=== PATIENT | female | born 1935 | race Native Hawaiian/Other Pacific Islander ===

== ENCOUNTER 2016-11-02 18:27 | Observation (INO) | payer MEDICARE ==
--- NOTE | 2016-11-02 20:50 | C.PDOC ---
History Of Present Illness 81 year old female presents to the ED with complaints of progressively worsening chest pain and back pain. Patient states she was admitted to the hospital 5 weeks ago for syncope and she has had the symptoms since. She notes the pain occurs at any time and lasts for minutes or hours. She has not taken anything for the pain and denies any associated symptoms. Time Seen by Provider: 11/02/16 20:10 Chief Complaint (Nursing): Back Pain History Per: Patient History/Exam Limitations: no limitations Onset/Duration Of Symptoms: Days Current Symptoms Are (Timing): Still Present Quality Of Discomfort: "Pain" Severity: Mild Associated Symptoms: None Past Medical History Reviewed: Historical Data, Nursing Documentation, Vital Signs Vital Signs: Last Vital Signs Temp 98.6 F 11/03/16 07:20 Pulse 60 11/03/16 07:30 Resp 20 11/03/16 07:20 BP 134/67 11/03/16 07:20 Pulse Ox 100 11/03/16 07:20 - Medical History PMH: Asthma, Bronchitis, HTN, Hypothyroidism Surgical History: CABG Family History: States: Unknown Family Hx - Social History Hx Alcohol Use: No Hx Substance Use: No - Immunization History Hx Influenza Vaccination: Yes Hx Pneumococcal Vaccination: Yes Review Of Systems Except As Marked, All Systems Reviewed And Found Negative. Constitutional: Negative for: Fever, Chills Cardiovascular: Positive for: Chest Pain. Negative for: Palpitations Respiratory: Negative for: Cough, Shortness of Breath Gastrointestinal: Negative for: Vomiting, Abdominal Pain Musculoskeletal: Positive for: Back Pain Neurological: Negative for: Weakness, Numbness Physical Exam - Physical Exam Appears: Non-toxic, No Acute Distress Skin: Normal Color, Warm, Dry Head: Atraumatic, Normacephalic Oral Mucosa: Moist Chest: Symmetrical, No Deformity, No Tenderness Cardiovascular: Rhythm Regular Respiratory: Normal Breath Sounds, No Accessory Muscle Use, No Rales, No Rhonchi , No Wheezing Gastrointestinal/Abdominal: Soft, No Tenderness Back: No Vertebral Tenderness, No Paraspinal Tenderness Extremity: Normal ROM Neurological/Psych: Oriented x3, Normal Speech, Normal Cognition ED Course And Treatment - Laboratory Results Result Diagrams: 11/03/16 06:04 11/03/16 06:04 ECG: Interpreted By Nd ECG Rhythm: Atrial Fibrillation ECG Interpretation: No Acute Changes Rate From EC O2 Sat by Pulse Oximetry: 100 (Room air) Pulse Ox Interpretation: Normal - Radiology CXR: Interpreted by Me CXR Interpretation: Yes: No Acute Disease Progress Note: CXR, EKG, and Blood work ordered and reviewed. Patient treated with Tylenol. Medical Decision Making Medical Decision Making: No indication of ACS PE or TAD Results discussed with pt Plan dc home usual meds f/u PCP Disposition - Disposition Disposition: HOSPITALIZED Disposition Time: 00:00 Condition: GOOD - Clinical Impression Clinical Impression: Chest pain, Back pain - Scribe Statement The provider has reviewed the documentation as recorded by the Scribe Hong Oconnell. Provider Attestation: All medical record entries made by the Scribe were at my direction and personally dictated by me. I have reviewed the chart and agree that the record accurately reflects my personal performance of the history, physical exam, medical decision making, and the department course for this patient. I have also personally directed, reviewed, and agree with the discharge instructions and disposition.
[2016-11-02 21:25] LABS: BASO % 0.5 % (0.0-2.0); EOS # 0.1 K/uL (0.0-0.7); EOS % 1.5 % (0.0-4.0); HEMATOCRIT 38.5 % (34.0-47.0); LYMPH # 2.4 K/uL (1.0-4.3); LYMPH % 24.8 % (20.0-40.0); MEAN CELL VOLUME 88.9 fL (81.0-99.0); MEAN CORPUSCULAR HEMOGLOBIN 29.1 pg (27.0-31.0); MEAN CORPUSCULAR HGB CONC 32.7 g/dL (33.0-37.0); MEAN PLATELET VOLUME 7.7 fL (7.2-11.7); MONO # 0.8 K/uL (0.0-0.8); MONO % 8.7 % (0.0-10.0); WHITE BLOOD COUNT 9.6 K/uL (4.8-10.8)
[2016-11-02 21:33] LABS: CHLORIDE 100 mmol/L (98-107); SODIUM 138 mmol/L (132-148)
[2016-11-02 21:35] LABS: GFR AFRICAN-AMERICAN 52
[2016-11-02 21:36] LABS: ALB/GLOB RATIO 1.2 (1.0-2.1); ALKALINE PHOSPHATASE 100 U/L (38-126); ALT/SGPT 19 U/L (9-52); AST/SGOT 22 U/L (14-36); BILIRUBIN,TOTAL 0.5 mg/dL (0.2-1.3); BLOOD UREA NITROGEN 30 mg/dL (7-17); CALCIUM 8.7 mg/dl (8.6-10.4); CARBON DIOXIDE 23 mmol/L (22-30); GLUCOSE,RANDOM 119 mg/dL (65-105); TOTAL PROTEIN 8.2 g/dL (6.3-8.3)
[2016-11-02 21:42] LABS: INR 1.1
[2016-11-02 21:45] LABS: POTASSIUM 4.7 mmol/L (3.6-5.2)
--- NOTE | 2016-11-03 01:01 | CP.PCM.HP ---
<Mely Hicks - Last Filed: 11/03/16 01:37> History of Present Illness - History of Present Illness History of Present Illness: CC: "chest pain" 81 year old female with PMHx of A-fib, DM, OA, asthma, CVA presents with complaint of chest pain. Chest pain is midsternal and started 1 week after being discharged in September 2016. She admits to intermittent chest pain at rest and admits to chest pain with exertion. Patient was not able to rate the pain or describe the quality of the pain. She admits to getting tired easily and admits to weight loss over the past few months. She has changed her diet to be more vegetarian based. She denies LE swelling, but admits to intermitted LE pain. Denies nausea, vomiting, diaphoresis, palpitations. Admits to chronic back pain, knee pain and has some rib pain. PMHx: A-fib, DM, OA, asthma, CVA 2017 (no residual weakness), HTN, and hypothyroidism PSHx: bilateral total knee replacement X5 years ago at [place], Bypass surgery X25 years ago. FamilyHx: Father: DM and IA [ at 82] Sisters (2): IA [ in 80's]. SocialHx:1 ppd for 2 years when younger (in teens), denies alcohol use, denies illicit drug use. Lives with daughter at home; retired (was content editor) PMD: Dr. Tan [employer] Equipment Operator: Dr. Elder Present on Admission - Present on Admission Any Indicators Present on Admission: No Review of Systems - Constitutional Constitutional: Fatigue. absent: Chills, Fever - EENT Eyes: absent: Blurred Vision, Change in Vision - Cardiovascular Cardiovascular: Chest Pain, Chest Pain at Rest. absent: Diaphoresis, Dyspnea, Edema - Respiratory Respiratory: absent: Cough, Dyspnea, Wheezing - Gastrointestinal Gastrointestinal: absent: Abdominal Pain, Constipation, Diarrhea, Nausea, Vomiting - Genitourinary Genitourinary: absent: Difficulty Urinating, Dysuria - Musculoskeletal Musculoskeletal: Back Pain. absent: Myalgias, Numbness, Tingling - Integumentary Integumentary: absent: Wounds - Neurological Neurological: absent: Dizziness, Numbness, Tingling - Endocrine Endocrine: Fatigue. absent: Palpitations Past Patient History - Past Medical History & Family History Past Medical History?: Yes - Past Social History Smoking Status: Never Smoked - CARDIAC Hx Hypertension: Yes - PULMONARY Hx Asthma: Yes Hx Bronchitis: Yes - NEUROLOGICAL Hx Neurological Disorder: No - HEENT Hx HEENT Problems: No - RENAL Hx Chronic Kidney Disease: No - ENDOCRINE/METABOLIC Hx Hypothyroidism: Yes - HEMATOLOGICAL/ONCOLOGICAL Hx Blood Transfusions: Yes (own blood) Hx Blood Transfusion Reaction: No - INTEGUMENTARY Hx Dermatological Problems: No - MUSCULOSKELETAL/RHEUMATOLOGICAL Hx Falls: Yes - GENITOURINARY/GYNECOLOGICAL Hx Genitourinary Disorders: No - PSYCHIATRIC Hx Substance Use: No - SURGICAL HISTORY Hx Coronary Artery Bypass Graft: Yes - ANESTHESIA Hx Anesthesia: Yes Hx Anesthesia Reactions: No Hx Malignant Hyperthermia: No Meds Allergies/Adverse Reactions: Allergies Allergy/AdvReac Type Severity Reaction Status Date / Time Penicillins Allergy Verified 09/22/16 12:48 Physical Exam - Constitutional Appears: No Acute Distress - Head Exam Head Exam: NORMAL INSPECTION, NORMOCEPHALIC - Eye Exam Eye Exam: EOMI, Normal appearance. absent: Scleral icterus - ENT Exam ENT Exam: Mucous Membranes Moist - Neck Exam Neck exam: Positive for: Full Rom, Normal Inspection - Respiratory Exam Respiratory Exam: Clear to Auscultation Bilateral, NORMAL BREATHING PATTERN - Cardiovascular Exam Cardiovascular Exam: REGULAR RHYTHM, +S1, +S2 - GI/Abdominal Exam GI & Abdominal Exam: Normal Bowel Sounds, Soft. absent: Distended, Tenderness - Extremities Exam Extremities exam: Positive for: full ROM, normal inspection - Back Exam Back exam: NORMAL INSPECTION - Neurological Exam Neurological exam: Alert, Oriented x3 - Psychiatric Exam Psychiatric exam: Normal Affect, Normal Mood - Skin Skin Exam: Dry, Normal Color, Warm Additional comments: +sternotomy scar Results - Vital Signs Recent Vital Signs: Last Vital Signs Temp 97.8 F 11/02/16 18:43 Pulse 79 11/02/16 18:43 Resp 18 11/02/16 18:43 BP 146/72 11/02/16 18:43 Pulse Ox 100 11/02/16 20:52 - Labs Result Diagrams: 11/02/16 21:21 11/02/16 21:21 Assessment & Plan (1) Chest pain Assessment and Plan: Patient with hx of CABG. BRNADO on admission negative. BRANDO Q6H X 2 EKG on admission- atrial fibrillation, 86 bpm. Cardio consult placed- Dr. Franco- help appreciated. Medications as per last admission: ASA 81 mg PO daily Coreg 6.25 mg PO BID Pradaxa 75mg PO daily f/u HgbA1C, TSH, FLP, Vit B12, Vit D. f/u iron studies Status: Acute (2) Atrial fibrillation Assessment and Plan: Rate controlled. Coreg 6.25 mg PO BID Status: Acute (3) HTN (hypertension) Assessment and Plan: Medications as per last admission: Losartan 25 mg PO daily Coreg 6.25 mg PO BID Status: Acute (4) Diabetes Assessment and Plan: Januvia daily ISS ACCUCHECKS f/u Hgb A1C Status: Acute (5) Hypothyroid Assessment and Plan: Resume Levothyroxine 50 mcg PO daily. f/u Thyroid studies in the AM. Status: Acute (6) CAD (coronary artery disease) Assessment and Plan: Cardio consult placed- Dr. Franco- help appreciated. Medications as per last admission: ASA 81 mg PO daily Coreg 6.25 mg PO BID Pradaxa 75mg PO daily Crestor 10 mg PO HS Status: Acute (7) History of CVA (cerebrovascular accident) Assessment and Plan: Medications as per last admission: ASA 81 mg PO daily Crestor 10 mg PO HS Status: Acute (8) Prophylactic measure Assessment and Plan: Pepcid 20 mg PO BID Heparin 5000 SC Q8H SCDs Status: Acute <Timur Dozier P - Last Filed: 11/14/16 22:15> Results - Vital Signs Recent Vital Signs: Last Vital Signs Temp 98.6 F 11/03/16 07:20 Pulse 60 11/03/16 07:30 Resp 20 11/03/16 07:20 BP 134/67 11/03/16 07:20 Pulse Ox 100 11/08/16 09:56 - Labs Result Diagrams: 11/03/16 06:04 11/03/16 06:04 Attending/Attestation - Attestation I have personally seen and examined this patient.: Yes I have fully participated in the care of the patient.: Yes I have reviewed all pertinent clinical information: Yes
[2016-11-03 03:00] VITALS: RESP 20
[2016-11-03 05:02] VITALS: PULSE 60; O2SAT 100
[2016-11-03 05:10] LABS: IRON 39 ug/dL (37-170)
[2016-11-03 06:16] LABS: BASO # 0.1 K/uL (0.0-0.2); BASO % 0.9 % (0.0-2.0); EOS # 0.2 K/uL (0.0-0.7); EOS % 2.2 % (0.0-4.0); HEMATOCRIT 35.3 % (34.0-47.0); LYMPH # 2.4 K/uL (1.0-4.3); LYMPH % 33.5 % (20.0-40.0); MEAN CELL VOLUME 89.2 fL (81.0-99.0); MEAN CORPUSCULAR HEMOGLOBIN 28.8 pg (27.0-31.0); MEAN CORPUSCULAR HGB CONC 32.4 g/dL (33.0-37.0); MEAN PLATELET VOLUME 7.8 fL (7.2-11.7); MONO # 0.7 K/uL (0.0-0.8); MONO % 9.9 % (0.0-10.0); RED CELL DISTRIBUTION WIDTH 14.1 % (11.5-14.5); WHITE BLOOD COUNT 7.3 K/uL (4.8-10.8)
[2016-11-03] MEDS ORDERED: Levothyroxine 50 MCG TAB PO SCH (06:30)
[2016-11-03 06:33] LABS: INR 1.1
[2016-11-03 06:35] LABS: CHLORIDE 103 mmol/L (98-107)
[2016-11-03 06:36] LABS: POTASSIUM 4.2 mmol/L (3.6-5.2); SODIUM 141 mmol/L (132-148)
[2016-11-03 06:38] LABS: ALB/GLOB RATIO 1.1 (1.0-2.1); ALKALINE PHOSPHATASE 81 U/L (38-126); AST/SGOT 25 U/L (14-36); BILIRUBIN,TOTAL 0.9 mg/dL (0.2-1.3); BLOOD UREA NITROGEN 27 mg/dL (7-17); CARBON DIOXIDE 23 mmol/L (22-30); CHOLESTEROL 94 mg/dL (0-199); GFR AFRICAN-AMERICAN > 60; GLUCOSE,RANDOM 104 mg/dL (65-105); TOTAL PROTEIN 6.8 g/dL (6.3-8.3)
[2016-11-03 06:39] LABS: ALT/SGPT 15 U/L (9-52)
[2016-11-03 06:46] LABS: TRANSFERRIN 193.85 mg/dL (206-381)
[2016-11-03 07:08] LABS: THYROID STIMULATING HORMONE 2.79 mIU/L (0.46-4.68)
[2016-11-03] MEDS: (Novolin R) Insulin Human Regular 100 units/ml vial SC SCH ×2 (07:30→11:30)
[2016-11-03 08:53] LABS: FREE T4 1.76 ng/dL (0.78-2.19)
[2016-11-03 08:58] VITALS: BP 134/67; TEMP 98.6
[2016-11-03] MEDS ORDERED: Levothyroxine 75 MCG TAB PO SCH (10:00)
[2016-11-03] MEDS ORDERED: VALSARTAN PO SCH (10:00)
[2016-11-03] MEDS ORDERED: TOPROL PO SCH (10:00)
[2016-11-03] MEDS ORDERED: ATORVASTATIN CALCIUM PO SCH (10:00)
--- NOTE | 2016-11-03 10:18 | RAD ---
HISTORY: chest pain COMPARISON: Comparison is made to the previous study dated 09/22/2016 TECHNIQUE: Chest PA and lateral FINDINGS: LUNGS: Prominent lung markings versus small focal infiltrate at the left lower lung. There are also small linear opacity seen at the mid to lower left lung likely atelectasis or scar tissue. PLEURA: No significant pleural effusion identified. No pneumothorax apparent. CARDIOVASCULAR: The cardiac silhouette is mildly enlarged. OSSEOUS STRUCTURES: No significant abnormalities. VISUALIZED UPPER ABDOMEN: Normal. OTHER FINDINGS: None. IMPRESSION: Left lower lung infiltrate or prominent lung markings. Cardiomegaly .
--- NOTE | 2016-11-03 17:33 | CP.PCM.DIS ---
Provider - Provider Date of Admission: 11/02/16 23:09 Attending physician: Timur Dozier MD Primary care physician: Dr. Tan Consults: Dr. Franco - cardiology Time Spent in preparation of Discharge (in minutes): 35 Diagnosis - Discharge Diagnosis (1) Chest pain Status: Acute Comment: follow up primary care. f/u cardiology Dr. Franco for outpatient stress test Hospital Course - Lab Results Lab Results: Most Recent Lab Values WBC 7.3 K/uL (4.8-10.8) 11/03/16 06:04 RBC 3.96 Mil/uL (3.80-5.20) 11/03/16 06:04 Hgb 11.4 g/dL (11.0-16.0) 11/03/16 06:04 Hct 35.3 % (34.0-47.0) 11/03/16 06:04 MCV 89.2 fL (81.0-99.0) 11/03/16 06:04 MCH 28.8 pg (27.0-31.0) 11/03/16 06:04 MCHC 32.4 g/dL (33.0-37.0) L 11/03/16 06:04 RDW 14.1 % (11.5-14.5) 11/03/16 06:04 Plt Count 223 K/uL (130-400) 11/03/16 06:04 MPV 7.8 fL (7.2-11.7) 11/03/16 06:04 Neut % (Auto) 53.5 % (50.0-75.0) 11/03/16 06:04 Lymph % (Auto) 33.5 % (20.0-40.0) 11/03/16 06:04 Adams % (Auto) 9.9 % (0.0-10.0) 11/03/16 06:04 Eos % (Auto) 2.2 % (0.0-4.0) 11/03/16 06:04 Baso % (Auto) 0.9 % (0.0-2.0) 11/03/16 06:04 Neut # 3.9 K/uL (1.8-7.0) 11/03/16 06:04 Lymph # 2.4 K/uL (1.0-4.3) 11/03/16 06:04 Adams # 0.7 K/uL (0.0-0.8) 11/03/16 06:04 Eos # 0.2 K/uL (0.0-0.7) 11/03/16 06:04 Baso # 0.1 K/uL (0.0-0.2) 11/03/16 06:04 PT 12.5 SECONDS (9.7-12.2) H 11/03/16 06:04 INR 1.1 11/03/16 06:04 APTT 47 SECONDS (21-34) H 11/02/16 21:21 Sodium 141 mmol/L (132-148) 11/03/16 06:04 Potassium 4.2 mmol/L (3.6-5.2) 11/03/16 06:04 Chloride 103 mmol/L (98-107) 11/03/16 06:04 Carbon Dioxide 23 mmol/L (22-30) 11/03/16 06:04 Anion Gap 19 (10-20) 11/03/16 06:04 BUN 27 mg/dL (7-17) H 11/03/16 06:04 Creatinine 1.0 MG/DL (0.7-1.2) 11/03/16 06:04 Est GFR ( Amer) > 60 11/03/16 06:04 Est GFR (Non-Af Amer) 53 11/03/16 06:04 POC Glucose (mg/dL) 142 mg/dL (65-110) H 11/03/16 08:17 Random Glucose 104 mg/dL (65-105) 11/03/16 06:04 Hemoglobin A1c 7.7 % (4.2-6.5) H 11/03/16 06:04 Calcium 8.0 mg/dl (8.6-10.4) L 11/03/16 06:04 Iron 39 ug/dL (37-170) 11/03/16 01:25 TIBC 263 ug/dL (250-450) 11/03/16 01:25 % Saturation 15 (20-55) L 11/03/16 01:25 Transferrin 193.85 mg/dL (206-381) L 11/03/16 06:04 Ferritin 37.2 ng/mL 11/03/16 06:04 Total Bilirubin 0.9 mg/dL (0.2-1.3) 11/03/16 06:04 AST 25 U/L (14-36) 11/03/16 06:04 ALT 15 U/L (9-52) 11/03/16 06:04 Alkaline Phosphatase 81 U/L (38-126) 11/03/16 06:04 Total Creatine Kinase 48 U/L (30-135) 11/03/16 04:37 CK-MB (Mass) 1.15 ng/mL (0.0-3.38) 11/03/16 04:37 Troponin I < 0.0120 ng/mL (0.00-0.120) 11/02/16 21:21 Troponin I, Quant < 0.0120 ng/mL (0.00-0.120) 11/03/16 04:37 Total Protein 6.8 g/dL (6.3-8.3) 11/03/16 06:04 Albumin 3.6 g/dL (3.5-5.0) 11/03/16 06:04 Globulin 3.2 gm/dL (2.2-3.9) 11/03/16 06:04 Albumin/Globulin Ratio 1.1 (1.0-2.1) 11/03/16 06:04 Triglycerides 104 mg/dL (0-149) D 11/03/16 06:04 Cholesterol 94 mg/dL (0-199) 11/03/16 06:04 LDL Cholesterol Direct 34 mg/dL (0-129) 11/03/16 06:04 HDL Cholesterol 35 mg/dL (30-70) 11/03/16 06:04 Lipase 93 U/L (23-300) 11/02/16 21:21 Vitamin B12 318 pg/mL (239-931) 11/03/16 06:04 25-OH Vitamin D Total 34.3 NG/ML (30.0-100.0) 11/03/16 06:04 Free T4 1.76 ng/dL (0.78-2.19) 11/03/16 06:04 TSH 3rd Generation 2.79 mIU/L (0.46-4.68) 11/03/16 06:04 - Hospital Course Hospital Course: On admission: 81 year old female with PMHx of A-fib, DM, OA, asthma, CVA presents with complaint of chest pain. Chest pain is midsternal and started 1 week after being discharged in September 2016. She admits to intermittent chest pain at rest and admits to chest pain with exertion. Patient was not able to rate the pain or describe the quality of the pain. She admits to getting tired easily and admits to weight loss over the past few months. She has changed her diet to be more vegetarian based. She denies LE swelling, but admits to intermitted LE pain. Denies nausea, vomiting, diaphoresis, palpitations. Admits to chronic back pain, knee pain and has some rib pain. During Hospital Stay: Patient had 2 normal troponin levels with EKGS showing no changes from her past or acute changes. She was going to be scheduled for an inpatient stress test the next day but the patient did not want to stay in the hospital. She stated that she had many things to do at home and was involved in planing events that would given her more stress and chest pain if she did not leave and do work for those events. Although her risks such as heart attack and were explained if we did not perform more exams were explained to her the patient Patient left Against Medical Advice. She was told to follow up with Dr. Franco for outpatient stress test. She stated she would call him to schedule this test and follow up with her primary care doctor. Patient left AMA. Discharge Exam - Head Exam Head Exam: NORMAL INSPECTION, NORMOCEPHALIC Additional comments: not done, patient left ama Discharge Plan - Follow Up Plan Condition: GOOD Disposition: AGAINST MEDICAL ADVICE
--- NOTE | 2016-11-03 18:31 | CARD ---
APPROVED REPORT EKG Measurement Heart [id number] <Conclusion> Atrial fibrillation Abnormal ECG
--- NOTE | 2016-11-04 19:03 | CARD ---
APPROVED REPORT EKG Measurement Heart [id number] <Conclusion> Atrial fibrillation Abnormal ECG
== END 2016-11-03 14:33 | disposition left against medical advice (07) ==
LOC: C.ER 18:27 → C.9E 23:09 → C.6T 11-03 00:59
PROVIDERS: ADMIT Internal Medicine; ATTEND Internal Medicine
DX: I48.91 Unspecified atrial fibrillation (principal); I25.10 Atherosclerotic heart disease of native coronary artery without angina pectoris; Z95.1 Presence of aortocoronary bypass graft; I10 Essential (primary) hypertension; E11.9 Type 2 diabetes mellitus without complications; E03.9 Hypothyroidism, unspecified; Z86.73 Personal history of transient ischemic attack (TIA), and cerebral infarction without residual deficits; J45.909 Unspecified asthma, uncomplicated
CPT/HCPCS: 36415; 71020; 80053; 80061; 82306; 82607; 82728; 82948; 83036; 83540; 83550; 83690; 84439; 84443; 84466; 84484; 85025; 85610; 85730; 93005; 96372; 99285; G0378; J1644